=== PATIENT | female | born 1980 | race Caucasian/White ===

== ENCOUNTER 2023-09-10 09:05 | Emergency (ER) | payer OTHER, SELFPAY ==
[2023-09-10 09:16] VITALS: BP 106/61; PULSE 94; RESP 16; TEMP 36.8; O2SAT 100
--- NOTE | 2023-09-10 09:32 | ED.EAR ---
HPI - Ear Problem General Chief complaint: Ear Stated complaint: Sinus/Right Ear Irritation Time Seen by Provider: 09/10/23 09:35 Source: patient and RN notes reviewed Mode of arrival: ambulatory Limitations: no limitations History of Present Illness HPI Narrative: 43-year-old female presents concern for one-week history of sore throat, sinus pain and pressure, runny nose, right ear pain. Reports she has been having fevers, was 101 this morning. She reports her son recently was diagnosed with strep throat. She reports she has been taking [id number] medications for her symptoms without relief. MD Complaint: ear pain Related Data Allergies Allergy/AdvReac Type Severity Reaction Status Date / Time codeine Allergy Mild NAUSEA AND Verified 09/10/23 09:16 VOMITING Review of Systems Review of Systems: CONSTITUTIONAL: Reports malaise, fever. EYES: Denies visual changes, redness, or discharge. ENT: Reports rhinorrhea, congestion, sinus pain, and sore throat. Reports right ear pain CARDIOVASCULAR: Denies chest pain, palpitations, or edema. RESPIRATORY: Denies cough. Denies dyspnea. GASTROINTESTINAL: Denies abdominal pain, nausea, vomiting, diarrhea SKIN: Denies rash or itching. MUSCULOSKELETAL: Denies myalgia. NEUROLOGIC: Denies headache. All systems reviewed & are unremarkable except as noted in HPI and below PMFSH Comments At time of signature, agree with nursing past medical, surgical, social and family history. There is no relevant family history pertinent to the presenting complaint Exam Narrative: GENERAL: Nontoxic-appearing and in no acute distress. HEAD: Normocephalic EYES: PERRLA, conjunctivae clear ENT: Nares clear, turbinates edematous, clear discharge. Mucous membranes moist. TM not visible due to excessive cerumen bilaterally; right tragal tenderness. Oropharynx erythematous without lesions. Tonsils enlarged and without exudate, no drooling, no hoarseness, no trismus, uvula midline. NECK: Supple. No lymphadenopathy CHEST: Clear to auscultation, breath sounds equal. No wheezing, rhonchi, rales, or stridor. No respiratory distress, speaks in full sentences. HEART: Regular rate and rhythm. No murmur heard. SKIN: Warm, dry, no rash. NEURO: Alert and oriented x3. PSYCH: Normal mood and affect Course Course Emergency Course: Attempted to dislodge or moves cerumen to visualize TM without success. Because patient has tragal tenderness, ear pain, exposure to strep I will treat prophylactically for exposure strep and potential ear infection. Patient is aware of diagnosis, understands and agrees to treatment plan. Anticipatory guidance given. Patient agrees to follow-up as directed and is aware of reasons to seek care at the emergency department. Portions of this record may have been created with voice recognition software Level of Care: Express Care Visit Vital Signs Vital signs: Vital Signs Temperature 98.3 F 09/10/23 09:16 Pulse Rate 94 09/10/23 09:16 Respiratory Rate 16 09/10/23 09:16 Blood Pressure 106/61 09/10/23 09:16 Pulse Oximetry 100 09/10/23 09:16 Oxygen Delivery Room Air 09/10/23 09:16 Temperature 98.3 F 09/10/23 09:16 Pulse Rate 94 09/10/23 09:16 Respiratory Rate 16 09/10/23 09:16 Blood Pressure 106/61 09/10/23 09:16 Pulse Oximetry 100 09/10/23 09:16 Oxygen Delivery Room Air 09/10/23 09:16 Reviewed. Medical Decision Making MDM Narrative Medical decision making narrative: Differential diagnosis considered: Tavares virus, strep pharyngitis, allergic rhinitis, upper respiratory tract infection, sinusitis, rhinosinusitis, nasopharyngitis. viral pharyngitis, otitis media, otitis externa, otitis effusion, cerumen impaction, foreign body. Exam findings show no acute concerns or changes; patient is non-toxic appearing and is in no distress. Patient is appropriate for outpatient treatment and follow-up. Vital Signs Vital Signs: Vital Signs
== END 2023-09-10 09:52 | disposition home or self-care (01) ==
PROVIDERS: Emergency Provider Nurse Practitioner
DX: J06.9 Acute upper respiratory infection, unspecified (principal); Z20.818 Contact with and (suspected) exposure to other bacterial communicable diseases; H61.23 Impacted cerumen, bilateral
CPT/HCPCS: 87081; 87880; 99213; G0463